=== PATIENT | female | born 1995 | race Two or more races ===

== ENCOUNTER 2016-03-11 19:50 | Emergency (ER) | payer OTHER ==
[~2016-03-11] VITALS: Ht 162.6 cm; Wt 65.8 kg
[2016-03-11 20:04] VITALS: BP 138/79
== END 2016-03-11 23:49 | disposition home or self-care (01) ==
LOC: ER 19:56
DX: Z53.21 Procedure and treatment not carried out due to patient leaving prior to being seen by health care provider (principal)
CPT/HCPCS: A4606; Z7610